=== PATIENT | female | born 1980 | race Hispanic/Latino ===

== ENCOUNTER 2022-09-18 08:54 | Emergency (ER) | payer OTHER ==
[~2022-09-18] VITALS: Ht 149.9 cm; Wt 87.5 kg
[2022-09-18] MEDS ORDERED: ONDANSETRON HCL 4 MG ORAL DISINTEGRATING TAB PO ONE (09:30)
[2022-09-18] MEDS ORDERED: ONDANSETRON ODT4 MG PO (11:14)
[2022-09-18] MEDS ORDERED: DICYCLOMINE HCL20 MG PO (11:14)
== END 2022-09-18 11:33 | disposition home or self-care (01) ==
LOC: VACCPMC 09:01
DX: R11.2 Nausea with vomiting, unspecified (principal); B34.9 Viral infection, unspecified; R19.7 Diarrhea, unspecified; F41.9 Anxiety disorder, unspecified
CPT/HCPCS: 71045; 83518; 87070; 87400; 99283; Q0162